=== PATIENT | male | born 1955 | race Caucasian/White ===

== ENCOUNTER 2016-12-17 15:27 | Inpatient (IN) | payer MEDICAID ==
[~2016-12-17] VITALS: Ht 167.6 cm; Wt 158.8 kg
[~2016-12-17 15:27] MED LIST: TRAM50TA3 PO
[2016-12-17] MEDS ORDERED: IPRATROPIUM/ALBUTEROL 0.5-3(2.5)MG/3ML NEB HHN ONE (16:30)
[2016-12-17 16:45] LABS: EOSINOPHILS % 3.8 % (0.0-5.0); HEMATOCRIT. 37.8 % (42.0-52.0); HEMOGLOBIN. 11.7 g/dL (14.0-18.0); LYMPHOCYTES % 16.2 % (20.0-50.0); MEAN CORPUSCULAR HEMOGLOBIN 23.5 pg (28.0-32.0); MEAN PLATELET VOLUME 8.6 fl (7.4-10.4); PLATELET 139 x1000/uL (130-400); RED BLOOD CELL COUNT 4.97 mill/uL (4.7-6.1); RED CELL DISTRIBUTION WIDTH 22.1 % (11.6-14.6)
[2016-12-17 16:59] LABS: CARBON DIOXIDE 24 mEq/L (21-32); CHLORIDE 97 mEq/L (98-107); TROPONIN I < 0.02 ng/mL (0.00-0.04)
[2016-12-17 17:02] LABS: D-DIMER 5.49 mg/L FEU (<0.50); INR 1.1; PARTIAL THROMBOPLASTIN TIME 24.5 sec (24.0-34.0); PROTHROMBIN TIME 11.2 sec
[2016-12-17 17:03] LABS: PLATELET ESTIMATE NORMAL
[2016-12-17 18:20] LABS: BG BASE EXCESS -1.3 mmol/L (-2.0-2.0); BG DEOXYHEMOGLOBIN 6.7 % (0.0-5.0); BG FRACTION INSPIRED OXYGEN 28; BG HCO3 ACT 23.6 mmol/L (22.0-26.0); BG METHEMOGLOBIN 0.8 % (0.0-1.5); BG OXYGEN SATURATION 93.2 % (92.0-98.5); BG OXYHEMOGLOBIN 92.5 % (94.0-97.0); BG PCO2 40.1 mmHg (35.0-45.0); BG PH 7.387 (7.350-7.450); BG PO2 73.4 mmHg (75.0-100.0); BG SAMPLE SITE RIGHT RADIAL; BG TOTAL HEMOGLOBIN 12.3 g/dL (12.0-18.0); BG VENT MODE NASAL CANNULA
[2016-12-17] MEDS ORDERED: ENOXAPARIN 80MG/0.8ML SYR SUBCUT ONE (19:00)
[2016-12-17] MEDS ORDERED: CALCIUM GLUCONATE 100MG/ML 10ML VIAL IV ONE ×2 (20:30→20:45)
[2016-12-17] MEDS ORDERED: SODIUM POLYSTYRENE SULFONATE 15 G/60 ML BOT PO ONE (20:30)
[2016-12-17] MEDS ORDERED: SODIUM CHLORIDE 0.9% 250 ML IV ONE (20:48)
[2016-12-17 23:00] VITALS: BP 104/65
[2016-12-17 23:30] VITALS: BP 104/68
[2016-12-17] MEDS ORDERED: LOV40 SUBCUT (23:51)
[2016-12-17] MEDS ORDERED: TRAM50TA PO (23:52)
[2016-12-17] MEDS ORDERED: LISI40TA4 PO (23:53)
[2016-12-17] MEDS ORDERED: POTA20TA75 PO (23:58)
[2016-12-17] MEDS ORDERED: FURO40TA5 PO (23:58)
[2016-12-17] MEDS ORDERED: DILT120C2 PO (23:58)
[2016-12-17] MEDS ORDERED: SPIR50TA26 PO (23:58)
[2016-12-17] MEDS ORDERED: P20 PO (23:58)
[2016-12-17] MEDS ORDERED: ATOR20TA65 PO (23:58)
[2016-12-18] VITALS (7 sets, daily range): BP systolic 93–128; BP diastolic 58–80
[2016-12-18] MEDS ORDERED: ONDANSETRON HCL 4MG/2ML VIAL IV PRN (04:00)
[2016-12-18] MEDS ORDERED: IPRATROPIUM/ALBUTEROL 0.5-3(2.5)MG/3ML NEB HHN PRN (04:00)
[2016-12-18] MEDS ORDERED: MORPHINE SULFATE 4 MG/ML CPJ (NOT FOR IM USE) IV PRN (04:00)
[2016-12-18] MEDS: METHYLPREDNISOLONE SOD SUCC 40 MG/ML VIAL IV SCH ×3 (04:08→20:15)
[2016-12-18] MEDS: LEVOFLOXACIN 500MG PREMIX 100 ML IV SCH (05:13)
[2016-12-18 06:22] LABS: HEMATOCRIT. 35.7 % (42.0-52.0); MEAN CORPUSCULAR HEMOGLOBIN 23.6 pg (28.0-32.0); MEAN CORPUSCULAR VOLUME 76.3 fL (80.0-94.0); MEAN PLATELET VOLUME 8.9 fl (7.4-10.4); PLATELET 119 x1000/uL (130-400); RED BLOOD CELL COUNT 4.68 mill/uL (4.7-6.1); RED CELL DISTRIBUTION WIDTH 22.6 % (11.6-14.6)
[2016-12-18] MEDS: IPRATROPIUM/ALBUTEROL 0.5-3(2.5)MG/3ML NEB HHN SCH ×2 (07:32→20:03)
[2016-12-18] MEDS ORDERED: HYDROCODONE/ACETAMINOPHEN 5/325MG TABLET PO PRN (11:30)
[2016-12-18] MEDS: ENOXAPARIN 40MG/0.4ML SYR SUBCUT SCH ×2 (11:54→20:16)
[2016-12-18] MEDS: DILTIAZEM HCL 60MG TABLET PO SCH ×2 (11:55→17:34)
[2016-12-18] MEDS: TRAMADOL 50MG TABLET PO PRN (11:55)
[2016-12-18] MEDS: FUROSEMIDE 40MG/4ML VIAL IV SCH (11:55)
[2016-12-18] MEDS ORDERED: DILTIAZEM HCL 60MG TABLET PO SCH (14:00)
[2016-12-18 14:30] LABS: PLATELET ESTIMATE SLIGHTLY DECREASED
[2016-12-18] MEDS ORDERED: DILTIAZEM HCL 5MG/ML 5ML VIAL IV PRN (18:30)
[2016-12-18] MEDS: ATORVASTATIN CALCIUM 20MG TABLET PO SCH (20:15)
[2016-12-18] MEDS: LISINOPRIL 40MG TABLET PO SCH (20:23)
[2016-12-19] VITALS (7 sets, daily range): BP systolic 108–136; BP diastolic 71–85
[2016-12-19] MEDS: DILTIAZEM HCL 60MG TABLET PO SCH ×2 (00:27→05:51)
[2016-12-19] MEDS: IPRATROPIUM/ALBUTEROL 0.5-3(2.5)MG/3ML NEB HHN SCH ×4 (02:00→20:58)
[2016-12-19] MEDS: LEVOFLOXACIN 500MG PREMIX 100 ML IV SCH (05:51)
[2016-12-19] MEDS: ENOXAPARIN 150MG/ML SYR SUBCUT SCH ×2 (08:23→20:54)
[2016-12-19] MEDS: FUROSEMIDE 40MG/4ML VIAL IV SCH (08:23)
[2016-12-19] MEDS: METHYLPREDNISOLONE SOD SUCC 40 MG/ML VIAL IV SCH ×2 (08:23→20:53)
[2016-12-19] MEDS: LISINOPRIL 40MG TABLET PO SCH (08:24)
[2016-12-19] MEDS ORDERED: SPIRONOLACTONE 50MG TABLET PO SCH (09:00)
[2016-12-19] MEDS ORDERED: POTASSIUM CHLORIDE 20MEQ TABLET SR PO SCH (09:00)
[2016-12-19 09:22] LABS: BASOPHILS % 0.1 % (0.0-2.0); HEMATOCRIT. 34.6 % (42.0-52.0); HEMOGLOBIN. 10.7 g/dL (14.0-18.0); LYMPHOCYTES % 8.7 % (20.0-50.0); MEAN CORPUSCULAR HEMOGLOBIN 23.7 pg (28.0-32.0); MEAN CORPUSCULAR VOLUME 76.5 fL (80.0-94.0); MEAN PLATELET VOLUME 8.5 fl (7.4-10.4); MONOCYTES % 2.8 % (2.0-8.0); NEUTROPHILS % 88.4 % (40.0-76.0); PLATELET 122 x1000/uL (130-400); RED BLOOD CELL COUNT 4.53 mill/uL (4.7-6.1); RED CELL DISTRIBUTION WIDTH 22.1 % (11.6-14.6)
[2016-12-19 09:51] LABS: CARBON DIOXIDE 27 mEq/L (21-32); CHLORIDE 98 mEq/L (98-107)
[2016-12-19 14:23] LABS: CLARITY URINE CLEAR (CLEAR); COLOR URINE YELLOW (YELLOW); GLUCOSE URINE NEGATIVE (NEGATIVE); KETONES URINE NEGATIVE (NEGATIVE); LEUKOCYTE ESTERASE URINE NEGATIVE (NEGATIVE); NITRITE URINE NEGATIVE (NEGATIVE); OCCULT BLOOD URINE NEGATIVE (NEGATIVE); PROTEIN URINE NEGATIVE (NEGATIVE); UROBILINOGEN URINE 0.2 E.U./dL (0.2-1.0)
[2016-12-19 14:51] LABS: *AMPHETAMINES SCREEN URINE NEGATIVE (NEGATIVE); *BARBITURATES SCREEN URINE NEGATIVE (NEGATIVE); *BENZODIAZEPINES SCREEN URINE NEGATIVE (NEGATIVE); *COCAINE SCREEN URINE NEGATIVE (NEGATIVE); CANNABINOID URINE SCREEN NEGATIVE (NEGATIVE); METHADONE URINE SCREEN NEGATIVE (NEGATIVE); OPIATES URINE SCREEN PRESUMTIVE POSITIVE (NEGATIVE); PHENCYCLIDINE URINE SCREEN NEGATIVE (NEGATIVE)
[2016-12-19] MEDS: DILTIAZEM HCL 90MG TABLET PO SCH (17:26)
[2016-12-19] MEDS: ATORVASTATIN CALCIUM 20MG TABLET PO SCH (20:53)
[2016-12-20] MEDS: IPRATROPIUM/ALBUTEROL 0.5-3(2.5)MG/3ML NEB HHN SCH ×4 (02:24→19:45)
[2016-12-20 04:00] VITALS: BP 122/70
[2016-12-20] MEDS: DILTIAZEM HCL 90MG TABLET PO SCH ×4 (05:30→18:44)
[2016-12-20 06:32] LABS: HEMATOCRIT. 35.1 % (42.0-52.0); HEMOGLOBIN. 10.9 g/dL (14.0-18.0); MEAN CORPUSCULAR HEMOGLOBIN 23.7 pg (28.0-32.0); MEAN CORPUSCULAR VOLUME 76.6 fL (80.0-94.0); MEAN PLATELET VOLUME 8.8 fl (7.4-10.4); PLATELET 138 x1000/uL (130-400); RED BLOOD CELL COUNT 4.58 mill/uL (4.7-6.1); RED CELL DISTRIBUTION WIDTH 22.2 % (11.6-14.6)
[2016-12-20 08:00] VITALS: BP 140/67
[2016-12-20] MEDS ORDERED: MORPHINE SULFATE 4 MG/ML CPJ (NOT FOR IM USE) IV PRN (08:15)
[2016-12-20] MEDS: METHYLPREDNISOLONE SOD SUCC 40 MG/ML VIAL IV SCH (08:58)
[2016-12-20] MEDS: ENOXAPARIN 150MG/ML SYR SUBCUT SCH (08:59)
[2016-12-20] MEDS ORDERED: LEVOFLOXACIN 500MG TABLET PO SCH (11:00)
[2016-12-20 12:00] VITALS: BP 124/69
[2016-12-20] MEDS ORDERED: LACTULOSE 20G/30ML UDC PO NR (12:15)
[2016-12-20] MEDS ORDERED: NA PHOS,M-B/NA PHOS,DI-BA ENEMA 118ML PR NR (12:15)
[2016-12-20 14:01] LABS: PLATELET ESTIMATE NORMAL
[2016-12-20] MEDS ORDERED: MAGNESIUM HYDROXIDE 400MG/5ML 30ML UDC PO NR (14:45)
[2016-12-20 16:00] VITALS: BP 127/79
[2016-12-20] MEDS: TRAMADOL 50MG TABLET PO PRN (19:50)
[2016-12-20 19:51] VITALS: BP 130/74
[2016-12-20 20:00] VITALS: BP 130/74
== END 2016-12-20 20:40 | disposition home or self-care (01) | DRG 460 ==
LOC: ER 15:39 → ENRESERV 20:53 → 7WST 22:04
PROVIDERS: ADMIT Hospitalist; ATTEND Hospitalist
DX: N17.9 Acute kidney failure, unspecified (principal); J96.00 Acute respiratory failure, unspecified whether with hypoxia or hypercapnia; E46 Unspecified protein-calorie malnutrition; I82.432 Acute embolism and thrombosis of left popliteal vein; I48.92 Unspecified atrial flutter; E87.1 Hypo-osmolality and hyponatremia; I11.0 Hypertensive heart disease with heart failure; I50.9 Heart failure, unspecified; D63.8 Anemia in other chronic diseases classified elsewhere; E11.9 Type 2 diabetes mellitus without complications; I48.0 Paroxysmal atrial fibrillation; M94.0 Chondrocostal junction syndrome [Tietze]; E66.2 Morbid (severe) obesity with alveolar hypoventilation; J44.1 Chronic obstructive pulmonary disease with (acute) exacerbation; E87.5 Hyperkalemia; Z68.43 Body mass index [BMI] 50.0-59.9, adult; E78.5 Hyperlipidemia, unspecified; G47.33 Obstructive sleep apnea (adult) (pediatric); Z80.42 Family history of malignant neoplasm of prostate; Z82.49 Family history of ischemic heart disease and other diseases of the circulatory system; Z99.81 Dependence on supplemental oxygen; Z79.899 Other long term (current) drug therapy
CPT/HCPCS: 36415; 36600; 71010; 78580; 80048; 80053; 80305; 81003; 82375; 82805; 83690; 83735; 83880; 84484; 85025; 85379; 85610; 85730; 93005; 93970; 94640; 94660; 96372; 96374; 99291; J0610; J1650; J1940; J1956; J2920; J7050; J7620